=== PATIENT | female | born 1940 | race Caucasian/White ===

== ENCOUNTER → 2017-07-11 | Outpatient (CLI) | payer SELFPAY ==
--- NOTE | 2017-07-11 13:22 | RADRPT ---
PROCEDURE: Right knee radiographs. CLINICAL INDICATION: Right knee pain. TECHNIQUE: Three views. Weight bearing. Frontal, lateral, and patellar view. COMPARISON: No prior studies are available for comparison. FINDINGS: There is no fracture or dislocation. Vascular calcifications are present consistent with atherosclerosis. There is no joint effusion. There are degenerative changes with osteophytes arising from all 3 joint compartment margins. There is medial joint compartment narrowing, subarticular sclerosis, and mild deformity. There is no lytic or blastic lesion. There is no radiopaque foreign body. IMPRESSION: 1. Moderate degenerative change. 2. Atherosclerosis. 3. No acute abnormality. RPTAT: QQ .Dg Noyola MD, MD Date Time Electronically viewed and signed by .Dg Noyola MD, MD on 07/11/2017 13:22 .R/
--- NOTE | 2017-07-11 15:23 | HKNOTE ---
DATE OF SERVICE: 07/11/2017 MAIN COMPLAINT: Pain in the right knee. HISTORY OF MAIN COMPLAINT: The patient is a 77-year-old female who has previously undergone an arth roscopic operation on the right knee, which was performed by me in 2008. She had absolutely no furt her problems with her right knee until about 2 weeks ago when she had a sudden onset of pain and swe lling in the knee. There was no particular injury to precipitate the problem. She comes in now for an orthopedic evaluation of her right knee. PRESENT COMPLAINTS: The knee does not feel unstable. It swells. It occasionally will not extend f ully, but there is no true locking of the knee. Pain is described as being severe, without radiation. Pain is aggravated by walking and weightbeari ng. She does get rest pain and night pain. She has been taking Aleve, which has not helped very mu ch. She has had a history of problems with her lower back. She has not had any treatments for her back, nor has she had any MRIs. She does get numbness and tingling in either leg from time to time. On a flat and level surface, bethany glez can walk about 2 or 3 blocks before she has to stop on account of pain. She does not use a walkin g aid. She gets pain with every step. She does limp most of the time. Her leg lengths feel equal. She does not have a shoe lift. She can clip her toenails and can tie her shoelaces. SPORTING ACTIVITIES: Gardening and walking. PAST ORTHOPEDIC HISTORY: In 2008, arthroscopic operation of the right knee by Dr. Chadwick, [facility]. PRIOR CORTISONE INTAKE: None. ALCOHOL INTAKE: None. OTHER JOINT PROBLEMS: None. 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 PAST MEDICAL HISTORY: Hypertension. PAST SURGICAL HISTORY: Operative arthroscopy on the right knee by Dr. Chadwick in 2008. DRUG ALLERGIES: NONE LISTED. MEDICATIONS: 1. Protonix. 2. Lisinopril. 3. CloniBID. 4. Chlorthalidone. 5. Potassium. 6. Vitamin B12. 7. Estroven. FAMILY HISTORY: Positive for cancer, diabetes, heart problems. SYSTEMS REVIEW: Hypertension, otherwise negative. HABITS: Patient does not smoke or drink alcoholic beverages. 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 Adam Macdonald, [address], [address], [place] [id number]. PHYSICAL EXAMINATION GENERAL: The patient is a youthful 77-year-old female. She walks without a walking aid. She has a n antalgic gait. VITAL SIGNS: Height 5 feet 3 inches, weight 138 pounds, blood pressure 185/75, temperature 98.0. HIPS: Both hips have a full range of motion without pain. NEUROLOGIC: NEUROLOGIC: Motor examination reveals no muscle deficit in the lower extremities. Deep tendon reflexes in the lower extremities: Right knee jerk +, left knee jerk +, right ankle jerk +, left ankle jerk +. Straight leg raising is negative bilaterally at 90 degrees. Lasegue and PANKAJ te sts are negative. RIGHT KNEE: The right knee shows normal alignment. Extension lacks 5 degrees (no pain). Flexion la cks 30 degrees (markedly painful). The medial and lateral collateral ligaments and cruciate ligamen ts are intact. Geovani test is negative. There is no effusion, tenderness, scarring, crepitus, or cy sts. The patella tracks normally. There is no tenderness on the articular surface of the patella or in the patellar groove. The Q angle is normal. 4+ tenderness over the medial joint line, 1+ effusion . 4+ crepitus in the knee and under the patella. LEFT KNEE: The left knee shows normal alignment. Active and passive extension is 0 degrees. Active and passive flexion is 135 degrees. The medial and lateral collateral ligaments and cruciate ligamen ts are intact. Geovani test is negative. There is no effusion, tenderness, scarring, crepitus, or cy sts. The patella tracks normally. There is no tenderness on the articular surface of the patella or in the patellar groove. The Q angle is normal. IMAGING: Plain x-rays of the right knee obtained today at the [facility] (3 view s) were reviewed. These show severe degenerative narrowing of the medial compartment of the knee. There is complete loss of joint space with amyy-ur-ruqh contact, subchondral sclerosis, intraosseous cyst formation, osteophyte formation. Similar changes are noted at the patellofemoral joint. The lateral compartment is moderately narrowed. DIAGNOSES: 1. Severe degenerative osteoarthritis of the right knee. 2. Possible torn meniscus of the right knee. 3. Gastroesophageal reflux disease. 4. Hypertension. 5. ALLERGIC TO TAPE. DISCUSSION: The patient is a 77-year-old female who underwent an arthroscopic operation on the [facility] t knee for torn meniscus in 2008, the surgery was performed by me. She had absolutely no further trouble with her knee until she had a sudden onset of pain 2 weeks ago , which suggests that she may have a torn meniscus. She does not have any instability of the knee, but there is a suggestion of locking. The symptoms a re suggestive of a torn meniscus, but she has so severe arthritis of the knee, and she was advised t hat an arthroscopic operation on the knee to manage the probable torn meniscus would merely be a samantha pping stone on the way to having a knee replacement. We spent considerable time discussing the pros and cons of getting an MRI of the knee and proceeding with an arthroscopic operation with [facility] t knee replacement when it is needed versus proceeding now with a knee replacement operation. She was advised that in my opinion, she should proceed with a knee replacement operation. She is 77 years old and her health not going to improve and she will definitely need to have a knee replaceme nt if she lives at the most 2 or 3 years. The operation of knee replacement was discussed with her in a fair amount of detail. She was shown videos of some of my patients had knee replacement operations. The patient was referred to my freyai te, [employer]. FINAL DIAGNOSES: 1. Severe degenerative osteoarthritis of the right knee. 2. Possible torn meniscus of the right knee. 3. Gastroesophageal reflux disease. 4. Hypertension. 5. ALLERGIC TO TAPE. Patient will see my associate, Dr. Fregoso for consideration of knee replacement. She would like to have the procedure done "over the holidays." Numerous questions were asked and answered. She was g iven permission to call me any time if she has any further questions concerning the operation. She was given a prescription for tramadol 50 mg b.i.d. as needed. She will make an appointment to see Dr. Fregoso in the near future. Dictated By: ALESSANDRO MINAYA/KVNG Conf#: [id number] DID#: [id number]
--- NOTE | 2017-07-11 15:23 | HKNOTE ---
DATE OF SERVICE: 07/11/2017 MAIN COMPLAINT: Pain in the right knee. HISTORY OF MAIN COMPLAINT: The patient is a 77-year-old female who has previously undergone an arth roscopic operation on the right knee, which was performed by me in 2008. She had absolutely no furt her problems with her right knee until about 2 weeks ago when she had a sudden onset of pain and swe lling in the knee. There was no particular injury to precipitate the problem. She comes in now for an orthopedic evaluation of her right knee. PRESENT COMPLAINTS: The knee does not feel unstable. It swells. It occasionally will not extend f ully, but there is no true locking of the knee. Pain is described as being severe, without radiation. Pain is aggravated by walking and weightbeari ng. She does get rest pain and night pain. She has been taking Aleve, which has not helped very mu ch. She has had a history of problems with her lower back. She has not had any treatments for her back, nor has she had any MRIs. She does get numbness and tingling in either leg from time to time. On a flat and level surface, bethany glez can walk about 2 or 3 blocks before she has to stop on account of pain. She does not use a walkin g aid. She gets pain with every step. She does limp most of the time. Her leg lengths feel equal. She does not have a shoe lift. She can clip her toenails and can tie her shoelaces. SPORTING ACTIVITIES: Gardening and walking. PAST ORTHOPEDIC HISTORY: In 2008, arthroscopic operation of the right knee by Dr. Chadwick, [facility]. PRIOR CORTISONE INTAKE: None. ALCOHOL INTAKE: None. OTHER JOINT PROBLEMS: None. 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 PAST MEDICAL HISTORY: Hypertension. PAST SURGICAL HISTORY: Operative arthroscopy on the right knee by Dr. Chadwick in 2008. DRUG ALLERGIES: NONE LISTED. MEDICATIONS: 1. Protonix. 2. Lisinopril. 3. CloniBID. 4. Chlorthalidone. 5. Potassium. 6. Vitamin B12. 7. Estroven. FAMILY HISTORY: Positive for cancer, diabetes, heart problems. SYSTEMS REVIEW: Hypertension, otherwise negative. HABITS: Patient does not smoke or drink alcoholic beverages. MILITARY PROFESSIONAL: Dr. Adam Macdonald, [address] [address], [address], [place] [id number]. PHYSICAL EXAMINATION GENERAL: The patient is a youthful 77-year-old female. She walks without a walking aid. She has a n antalgic gait. VITAL SIGNS: Height 5 feet 3 inches, weight 138 pounds, blood pressure 185/75, temperature 98.0. HIPS: Both hips have a full range of motion without pain. NEUROLOGIC: NEUROLOGIC: Motor examination reveals no muscle deficit in the lower extremities. Deep tendon reflexes in the lower extremities: Right knee jerk +, left knee jerk +, right ankle jerk +, left ankle jerk +. Straight leg raising is negative bilaterally at 90 degrees. Lasegue and PANKAJ te sts are negative. RIGHT KNEE: The right knee shows normal alignment. Extension lacks 5 degrees (no pain). Flexion la cks 30 degrees (markedly painful). The medial and lateral collateral ligaments and cruciate ligamen ts are intact. Geovani test is negative. There is no effusion, tenderness, scarring, crepitus, or cy sts. The patella tracks normally. There is no tenderness on the articular surface of the patella or in the patellar groove. The Q angle is normal. 4+ tenderness over the medial joint line, 1+ effusion . 4+ crepitus in the knee and under the patella. LEFT KNEE: The left knee shows normal alignment. Active and passive extension is 0 degrees. Active and passive flexion is 135 degrees. The medial and lateral collateral ligaments and cruciate ligamen ts are intact. Geovani test is negative. There is no effusion, tenderness, scarring, crepitus, or cy sts. The patella tracks normally. There is no tenderness on the articular surface of the patella or in the patellar groove. The Q angle is normal. IMAGING: Plain x-rays of the right knee obtained today at the [facility] (3 view s) were reviewed. These show severe degenerative narrowing of the medial compartment of the knee. There is complete loss of joint space with [id number]-po-[id number] contact, subchondral sclerosis, intraosseous cyst formation, osteophyte formation. Similar changes are noted at the patellofemoral joint. The lateral compartment is moderately narrowed. DIAGNOSES: 1. Severe degenerative osteoarthritis of the right knee. 2. Possible torn meniscus of the right knee. 3. Gastroesophageal reflux disease. 4. Hypertension. 5. ALLERGIC TO TAPE. DISCUSSION: The patient is a 77-year-old female who underwent an arthroscopic operation on the [facility] t knee for torn meniscus in 2008, the surgery was performed by me. She had absolutely no further trouble with her knee until she had a sudden onset of pain 2 weeks ago , which suggests that she may have a torn meniscus. She does not have any instability of the knee, but there is a suggestion of locking. The symptoms a re suggestive of a torn meniscus, but she has so severe arthritis of the knee, and she was advised t hat an arthroscopic operation on the knee to manage the probable torn meniscus would merely be a samantha pping stone on the way to having a knee replacement. We spent considerable time discussing the pros and cons of getting an MRI of the knee and proceeding with an arthroscopic operation with [facility] t knee replacement when it is needed versus proceeding now with a knee replacement operation. She was advised that in my opinion, she should proceed with a knee replacement operation. She is 77 years old and her health not going to improve and she will definitely need to have a knee replaceme nt if she lives at the most 2 or 3 years. The operation of knee replacement was discussed with her in a fair amount of detail. She was shown videos of some of my patients had knee replacement operations. The patient was referred to my freyai te, [employer]. FINAL DIAGNOSES: 1. Severe degenerative osteoarthritis of the right knee. 2. Possible torn meniscus of the right knee. 3. Gastroesophageal reflux disease. 4. Hypertension. 5. ALLERGIC TO TAPE. Patient will see my associate, Dr. Fregoso for consideration of knee replacement. She would like to have the procedure done "over the holidays." Numerous questions were asked and answered. She was g iven permission to call me any time if she has any further questions concerning the operation. She was given a prescription for tramadol 50 mg b.i.d. as needed. She will make an appointment to see Dr. Fregoso in the near future. Dictated By: ALESSANDRO MINAYA/KVNG Conf#: [id number] DID#: [id number]
--- NOTE | 2017-07-11 15:23 | HKNOTE ---
DATE OF SERVICE: 07/11/2017 MAIN COMPLAINT: Pain in the right knee. HISTORY OF MAIN COMPLAINT: The patient is a 77-year-old female who has previously undergone an arth roscopic operation on the right knee, which was performed by me in 2008. She had absolutely no furt her problems with her right knee until about 2 weeks ago when she had a sudden onset of pain and swe lling in the knee. There was no particular injury to precipitate the problem. She comes in now for an orthopedic evaluation of her right knee. PRESENT COMPLAINTS: The knee does not feel unstable. It swells. It occasionally will not extend f ully, but there is no true locking of the knee. Pain is described as being severe, without radiation. Pain is aggravated by walking and weightbeari ng. She does get rest pain and night pain. She has been taking Aleve, which has not helped very mu ch. She has had a history of problems with her lower back. She has not had any treatments for her back, nor has she had any MRIs. She does get numbness and tingling in either leg from time to time. On a flat and level surface, bethany glez can walk about 2 or 3 blocks before she has to stop on account of pain. She does not use a walkin g aid. She gets pain with every step. She does limp most of the time. Her leg lengths feel equal. She does not have a shoe lift. She can clip her toenails and can tie her shoelaces. SPORTING ACTIVITIES: Gardening and walking. PAST ORTHOPEDIC HISTORY: In 2008, arthroscopic operation of the right knee by Dr. Chadwick, [facility]. PRIOR CORTISONE INTAKE: None. ALCOHOL INTAKE: None. OTHER JOINT PROBLEMS: None. 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 PAST MEDICAL HISTORY: Hypertension. PAST SURGICAL HISTORY: Operative arthroscopy on the right knee by Dr. Chadwick in 2008. DRUG ALLERGIES: NONE LISTED. MEDICATIONS: 1. Protonix. 2. Lisinopril. 3. CloniBID. 4. Chlorthalidone. 5. Potassium. 6. Vitamin B12. 7. Estroven. FAMILY HISTORY: Positive for cancer, diabetes, heart problems. SYSTEMS REVIEW: Hypertension, otherwise negative. HABITS: Patient does not smoke or drink alcoholic beverages. ENAMEL SPRAYER: Dr. Adam Macdonald, [address] [facility], [address], [place] [id number]. PHYSICAL EXAMINATION GENERAL: The patient is a youthful 77-year-old female. She walks without a walking aid. She has a n antalgic gait. VITAL SIGNS: Height 5 feet 3 inches, weight 138 pounds, blood pressure 185/75, temperature 98.0. HIPS: Both hips have a full range of motion without pain. NEUROLOGIC: NEUROLOGIC: Motor examination reveals no muscle deficit in the lower extremities. Deep tendon reflexes in the lower extremities: Right knee jerk +, left knee jerk +, right ankle jerk +, left ankle jerk +. Straight leg raising is negative bilaterally at 90 degrees. Lasegue and PANKAJ te sts are negative. RIGHT KNEE: The right knee shows normal alignment. Extension lacks 5 degrees (no pain). Flexion la cks 30 degrees (markedly painful). The medial and lateral collateral ligaments and cruciate ligamen ts are intact. Geovani test is negative. There is no effusion, tenderness, scarring, crepitus, or cy sts. The patella tracks normally. There is no tenderness on the articular surface of the patella or in the patellar groove. The Q angle is normal. 4+ tenderness over the medial joint line, 1+ effusion . 4+ crepitus in the knee and under the patella. LEFT KNEE: The left knee shows normal alignment. Active and passive extension is 0 degrees. Active and passive flexion is 135 degrees. The medial and lateral collateral ligaments and cruciate ligamen ts are intact. Geovani test is negative. There is no effusion, tenderness, scarring, crepitus, or cy sts. The patella tracks normally. There is no tenderness on the articular surface of the patella or in the patellar groove. The Q angle is normal. IMAGING: Plain x-rays of the right knee obtained today at the [facility] [place] (3 view s) were reviewed. These show severe degenerative narrowing of the medial compartment of the knee. There is complete loss of joint space with bmhw-dy-twyk contact, subchondral sclerosis, intraosseous cyst formation, osteophyte formation. Similar changes are noted at the patellofemoral joint. The lateral compartment is moderately narrowed. DIAGNOSES: 1. Severe degenerative osteoarthritis of the right knee. 2. Possible torn meniscus of the right knee. 3. Gastroesophageal reflux disease. 4. Hypertension. 5. ALLERGIC TO TAPE. DISCUSSION: The patient is a 77-year-old female who underwent an arthroscopic operation on the [facility] t knee for torn meniscus in 2008, the surgery was performed by me. She had absolutely no further trouble with her knee until she had a sudden onset of pain 2 weeks ago , which suggests that she may have a torn meniscus. She does not have any instability of the knee, but there is a suggestion of locking. The symptoms a re suggestive of a torn meniscus, but she has so severe arthritis of the knee, and she was advised t hat an arthroscopic operation on the knee to manage the probable torn meniscus would merely be a samantha pping stone on the way to having a knee replacement. We spent considerable time discussing the pros and cons of getting an MRI of the knee and proceeding with an arthroscopic operation with [facility] t knee replacement when it is needed versus proceeding now with a knee replacement operation. She was advised that in my opinion, she should proceed with a knee replacement operation. She is 77 years old and her health not going to improve and she will definitely need to have a knee replaceme nt if she lives at the most 2 or 3 years. The operation of knee replacement was discussed with her in a fair amount of detail. She was shown videos of some of my patients had knee replacement operations. The patient was referred to my freyai te, [employer]. FINAL DIAGNOSES: 1. Severe degenerative osteoarthritis of the right knee. 2. Possible torn meniscus of the right knee. 3. Gastroesophageal reflux disease. 4. Hypertension. 5. ALLERGIC TO TAPE. Patient will see my associate, Dr. Fregoso for consideration of knee replacement. She would like to have the procedure done "over the holidays." Numerous questions were asked and answered. She was g iven permission to call me any time if she has any further questions concerning the operation. She was given a prescription for tramadol 50 mg b.i.d. as needed. She will make an appointment to see Dr. Fregoso in the near future. Dictated By: ALESSANDRO MINAYA/KVNG Conf#: [id number] DID#: [id number]
== END | disposition home or self-care (01) ==
LOC: HKI 11:07
DX: M17.11 Unilateral primary osteoarthritis, right knee (principal); K21.9 Gastro-esophageal reflux disease without esophagitis; I10 Essential (primary) hypertension; Z83.3 Family history of diabetes mellitus; Z80.9 Family history of malignant neoplasm, unspecified; Z82.49 Family history of ischemic heart disease and other diseases of the circulatory system
CPT/HCPCS: 73562; G0463